=== PATIENT | male | born 1945 | race Caucasian/White ===

== ENCOUNTER → 2017-04-02 | Outpatient (CLI) | payer MEDICARE, BC ==
[~2017-04-02] MED LIST: APRESOLINE PO; ASPIRIN PO; CALCITROL PO; COLACE PO; COUMADIN PO; DEMADEX PO; GLUCOTROL PO; ISORDIL PO; KCL PO; KLOR-CON PO; LANOXIN PO; LOPRESSOR PO; LYRICA PO; MULTI-VITAMIN1 TAB PO; PLAVIX PO; ZAROXYLYN PO
== END | disposition home or self-care (01) ==
LOC: CRAD 09:47
DX: R13.10 Dysphagia, unspecified (principal)
CPT/HCPCS: 74230; 92611; G8996-GN; G8997-GN; G8998-GN